=== PATIENT | male | born 1970 | race Two or more races ===

== ENCOUNTER 2021-01-08 10:33 | Emergency (ER) | payer OTHER ==
[~2021-01-08] VITALS: Ht 167.6 cm; Wt 84.4 kg
[2021-01-08 10:33] VITALS: BP 144/90
[2021-01-08] MEDS ORDERED: IBUPROFEN 800 MG TAB PO ONE (12:00)
== END 2021-01-08 12:17 | disposition home or self-care (01) ==
LOC: ER 10:33
DX: S93.401A Sprain of unspecified ligament of right ankle, initial encounter (principal); X50.0XXA Overexertion from strenuous movement or load, initial encounter; Y93.89 Activity, other specified; Y99.0 Civilian activity done for income or pay; Y92.69 Other specified industrial and construction area as the place of occurrence of the external cause
CPT/HCPCS: 73610